=== PATIENT | female | born 1990 | race Hispanic/Latino ===

== ENCOUNTER 2018-07-04 13:10 | Inpatient (IN) | payer MEDICAID | END 2018-07-07 13:45 | disposition home or self-care (01) | LOC: WSH 07-05 09:25 → LDH 13:10 | PROC: 10E0XZZ Delivery of Products of Conception, External Approach (ICD-10-PCS; principal; ~2018-07-04) | DX: O80 Encounter for full-term uncomplicated delivery (principal); Z37.0 Single live birth; Z3A.00 Weeks of gestation of pregnancy not specified ==